=== PATIENT | female | born 1990 | race Caucasian/White ===

== ENCOUNTER 2016-12-30 21:37 | Emergency (ER) | payer MEDICAID, OTHER ==
[~2016-12-30] VITALS: Ht 170.2 cm; Wt 97.5 kg
[2016-12-30 21:53] VITALS: BP 154/74
--- NOTE | 2016-12-30 22:09 | NUR ---
PATIENT AMBULATED TO ER BED 6.
--- NOTE | 2016-12-30 22:12 | NUR ---
PT 26/F CAME IN WITH C/O VAGINAL BLEEDING WITH ABDOMINAL PAIN X 1 DAY. A1, GESTATIONAL AGE 8 WKS PER PATIENT. NO MEDICAL HX. SKIN IS PINK/WARM/DRY; AAOX4 WITH EVEN AND STEADY GAIT; PATIENT STATES PAIN OF 4/10 AT THIS TIME; VSS; PATIENT POSITIONED FOR COMFORT; HOB ELEVATED; BEDRAILS UP X2; BED DOWN. ER MD MADE AWARE OF PT STATUS.
--- NOTE | 2016-12-30 22:20 | NUR ---
PATIENT BEING EVALUATED BY DR. MENDOZA.
--- NOTE | 2016-12-31 00:05 | NUR ---
PT RESTING ON BED. NO SIGNS OF DISTRESS AT THIS TIME. WILL CONTINUE TO MONITOR.
--- NOTE | 2016-12-31 02:05 | NUR ---
Patient discharged with v/s stable. Written and verbal after care instructions given and explained. Patient verbalized understanding. Ambulatory with steady gait. All questions addressed prior to discharge. Advised to follow up with PMD.
[2016-12-31 02:15] VITALS: BP 119/74
== END 2016-12-31 02:05 | disposition home or self-care (01) ==
LOC: MED 21:37
DX: O03.4 Incomplete spontaneous abortion without complication (principal); Z88.1 Allergy status to other antibiotic agents

== ENCOUNTER 2017-01-23 15:52 | Outpatient (CLI) | payer OTHER | END 2017-01-23 21:57 | disposition home or self-care (01) | LOC: MRD 15:52 | PROVIDERS: ATTEND Obstetrics & Gynecology | DX: N83.201 Unspecified ovarian cyst, right side (principal) | CPT/HCPCS: 76817 ==

== ENCOUNTER 2017-01-26 12:40 | Day surgery (SDC) | payer OTHER ==
[~2017-01-26] VITALS: Ht 170.2 cm; Wt 99.8 kg
[2017-01-26 13:08] LABS: BASOPHILS # (AUTO) 0.2 K/uL (0.00-0.22); BASOPHILS % (AUTO) 2.7 % (0.0-2.0); EOSINOPHILS # (AUTO) 0.2 K/uL (0-0.4); HEMATOCRIT 40.3 % (36-48); HEMOGLOBIN 13.2 g/dL (12.0-16.0); LYMPHOCYTES % (AUTO) 26.4 % (20.5-51.1); MEAN CORPUSCULAR HEMOGLOBIN 29 pg (27-31); MEAN CORPUSCULAR HGB CONC 33 g/dL (33-37); MEAN CORPUSCULAR VOLUME 88 fL (80-94); MONOCYTES # (AUTO) 0.4 K/uL (0.8-1.0); MONOCYTES % (AUTO) 4.7 % (1.7-9.3); NEUTROPHILS # (AUTO) 4.7 K/uL (1.8-7.7); NEUTROPHILS % (AUTO) 64.2 % (42.2-75.2); PLATELET COUNT (AUTO) 211 K/uL (140-450); RED BLOOD CELL COUNT(AUTO) 4.59 MIL/uL (4.20-5.40); RED CELL DISTRIBUTION WIDTH 12.7 % (11.6-13.7); WHITE BLOOD COUNT (AUTO) 7.5 K/uL (4.8-10.8)
[2017-01-26 13:28] LABS: ALBUMIN 3.7 g/dL (3.4-5.0); ANION GAP 14.6 (8-16); CALCIUM 8.9 mg/dL (8.5-10.1); CARBON DIOXIDE 26.3 mmol/L (21-32); CREATININE 0.8 mg/dL (0.6-1.3); POTASSIUM 3.9 mmol/L (3.5-5.1); TOTAL BILIRUBIN 0.5 mg/dL (0.0-1.0); TOTAL PROTEIN, SERUM 7.8 g/dL (6.4-8.2)
[2017-01-26] MEDS ORDERED: CLINDAMYCIN 900 MG in DEXTROSE 5% 100 ML IV SCH (13:48)
[2017-01-26] MEDS ORDERED: PROPOFOL 200 MG/20 ML VIAL IV ONE (14:50)
[2017-01-26] MEDS ORDERED: MEPERIDINE 25 MG/ML SYR ONE (14:59)
[2017-01-26] MEDS ORDERED: MIDAZOLAM 2 MG/2 ML VIAL ONE (14:59)
[2017-01-26] MEDS ORDERED: ONDANSETRON 4 MG/2 ML VIAL IVP PRN ×2 (15:00→16:05)
[2017-01-26] MEDS ORDERED: ACETAMINOPHEN/CODEINE 300/30MG 1 TAB PO PRN (15:00)
[2017-01-26] MEDS ORDERED: fentaNYL 0.05 MG/ML VIAL ONE (15:00)
[2017-01-26] MEDS ORDERED: IBUPROFEN 800 MG TAB PO PRN (15:00)
[2017-01-26] MEDS ORDERED: MORPHINE SULFATE 4 MG/ML SYR IM/IVP PRN (15:00)
--- NOTE | 2017-01-26 15:00 | NUR ---
RECEIVED PT FROM OR S/P SUCTION CURETTAGE. PT AWAKE, ALERT ORIENTED X4. NO SOB NOTED. DENIES ANY PAIN OR DISCOMFORT AT THIS TIME. ASSISTED BY GUEST RELATIONS ASSOCIATE. TRANSFERRED TO BED SAFELY AND COMFORTABLY. LITTLE TO NO VAGINAL BLEEDING NOTED AT THIS TIME. PT AMBULATORY. SAFETY PRECAUTION IN PLACE. CALL LIGHT WITHIN REACH.
[2017-01-26] MEDS ORDERED: LACTATED RINGERS 1,000 ML IV SCH (16:04)
[2017-01-26 16:05] VITALS: BP 104/59
[2017-01-26] MEDS ORDERED: diphenhydrAMINE 50 MG/ML VIAL IVP PRN (16:05)
[2017-01-26 16:20] VITALS: BP 103/57
[2017-01-26 16:35] VITALS: BP 105/57
[2017-01-26 16:50] VITALS: BP 102/61
[2017-01-26 17:20] VITALS: BP 105/61
[2017-01-26 17:50] VITALS: BP 104/63
--- NOTE | 2017-01-26 18:30 | NUR ---
PT CONSUMED 100% OF HER CLEAR LIQUID DINNER. ASSISTED PT TO THE BATHROOM. PT VOIDED LIGHT RED COLORED URINE. EXAMINED PERIPAD SOILING OF 10% NOTED DARK RED IN COLOR. PT INDEPENDENT. AMBULATORY TO THE BATHROOM AND ABLE TO CHANGE HER PERIPAD INDEPENDENTLY.
--- NOTE | 2017-01-26 18:40 | NUR ---
DISCHARGE TEACHINGS AND INSTRUCTIONS GIVEN TO PT. PT VERBALIZED UNDERSTANDING AND SIGNED DISCHARGE PAPERS. IV CANNULA REMOVED AND INTACT. NAME ARMBAND REMOVED. PT DENIES ANY PAIN OR DISCOMFORT AT THIS TIME. NO SOB NOTED. PROVIDED PT WITH DISCHARGE PACKET AND REMINDED TO FOLLOW UP WITH DR. Donald [place]. WHEELED PT TO THE HOSPITAL PARKING LOT WITH ON STABLE CONDITION.
== END 2017-01-26 18:40 | disposition home or self-care (01) ==
LOC: MDS 12:40 → MMU 12:42 → MDS 18:40
PROVIDERS: ATTEND Obstetrics & Gynecology
DX: O02.1 Missed abortion (principal); Z88.1 Allergy status to other antibiotic agents
CPT/HCPCS: 36415; 59820; 80053; 84702; 85025; 86886; 86900; 86901; J2175; J2250; J2704; J3010; J3490; J7060; J7120

== ENCOUNTER 2018-07-24 10:20 | Outpatient (CLI) | payer OTHER | END 2018-07-24 21:16 | disposition home or self-care (01) | LOC: MUS 10:20 | PROVIDERS: ATTEND Obstetrics & Gynecology | DX: O34.81 Maternal care for other abnormalities of pelvic organs, first trimester (principal); N83.201 Unspecified ovarian cyst, right side; Z3A.01 Less than 8 weeks gestation of pregnancy | CPT/HCPCS: 76801; Q0092 ==